=== PATIENT | female | born 1995 | race Caucasian/White ===

== ENCOUNTER → 2020-08-26 11:19 | Outpatient (BNVA) | payer OTHER, SELFPAY | PROVIDERS: Visit Provider Emergency Medicine | DX: Z20.822 Contact with and (suspected) exposure to COVID-19 (principal) | CPT/HCPCS: 87635 ==

== ENCOUNTER → 2023-07-17 12:00 | Outpatient (BNVA) | payer SELFPAY | PROVIDERS: PCP Nurse Practitioner Family; Visit Provider Nurse Practitioner Family | DX: E03.9 Hypothyroidism, unspecified (principal); Z83.79 Family history of other diseases of the digestive system; L20.9 Atopic dermatitis, unspecified; E66.9 Obesity, unspecified; Z68.32 Body mass index [BMI] 32.0-32.9, adult | CPT/HCPCS: 80053; 80061; 82784; 82785; 83516; 84443; 85025; 86001; 86003 ==

== ENCOUNTER 2025-01-27 09:16 | Emergency (ER) | payer OTHER, BC, MEDICAID, SELFPAY ==
[2025-01-27 09:22] VITALS: BP 128/78; PULSE 89; RESP 16; TEMP 36.6; O2SAT 99; BMI 24.9
--- NOTE | 2025-01-27 09:22 | ED_ITS ---
HPI - General Adult 2 General: Chief complaint: Animal Bite Stated complaint: cat bite right hand Time Seen by Provider: 01/27/25 09:17 Source: patient Mode of arrival: ambulatory Limitations: no limitations History of Present Illness: 29-year-old female states she was bit by a cat 2 days ago. Bit her on the right hand states cat is vaccinated states she has had some swelling and erythema to that hand. Mainly over the dorsum of the hand. Rates the pain a 6 out of 10 she denies any fevers denies any other injuries Related Data Home Medications ?Medication ?Instructions ?Recorded ?Confirmed levothyroxine 137 mcg tablet 137 mcg PO QAM 01/27/25 1 03/30/24 Previous Rx's ?Medication ?Instructions ?Recorded amoxicillin 500 mg-potassium 1 tab PO BID #14 tabs clavulanate 125 mg tablet (Augmentin) Allergies Allergy/AdvReac Type Severity Reaction Status Date / Time No Known Allergies Allergy Verified 08/26/20 11:02 [facility] ED 2 [facility]: Medical History (Updated 01/27/25 @ 10:10 by Pro Estrada MD) Hypothyroid Social History Smoking and tobacco/nicotine status: never used tobacco/nicotine Physical Exam 2 Const: COMMON NORMALS: no acute distress, patient oriented x3 and healthy appearing HENMT: COMMON NORMALS: normocephalic and atraumatic HEAD & SCALP: n ormocephalic and atraumatic Neck/C-Spine: COMMON NORMALS: full ROM and supple Chest: COMMONS NORMALS: normal inspection of the chest Resp: COMMON NORMALS: normal respiratory effort Cardio: COMMON NORMALS: regular rate, regular rhythm and No murmurs present (Cardio) RATE: regular rate RHYTHM: regular rhythm Extremity: COMMON NORMALS: full ROM NARRATIVE EXTREMITY EXAM: Erythema to the dorsum of right hand does not involve the fingers Neuro: COMMON NORMALS: patient oriented x3, moves all extremities and no focal motor deficits Psych: COMMON NORMALS: mental status grossly normal, Normal thought process present and cooperative THOUGHT PROCESS: Normal thought process present Skin: COMMON NORMALS: no rashes or lesions noted and no wounds GENERAL SKIN EXAM: no rashes or lesions noted Course 2 Vital Signs: Vital signs: Vital Signs Temperature 97.9 F 01/27/25 09:22 Pulse Rate 89 01/27/25 09:22 Respiratory Rate 16 01/27/25 09:22 Blood Pressure 128/78 01/27/25 09:22 Pulse Oximetry 99 01/27/25 09:22 Oxygen Delivery Me thod Room Air 01/27/25 09:22 MDM - General Adult Medical Decision Making 29-year-old female presents here after a cat bite to her right hand 2 days ago she does have a cellulitis that is mild in nature. She has no signs of necrotizing fasciitis her white count here was normal and she is afebrile did give her an IV dose of vancomycin here will prescribe her Augmentin for home I cat was vaccinated I did tell her if she has any worsening cellulitis she is to return she understands agrees to plan. Medical Records I reviewed the patient's medical records. Lab Data I reviewed the patient's lab results. 01/27/25 09:52 Laboratory Results WBC 6.12 10^3/uL (3.29-11.43) 01/27/25 09:52 RBC 4.45 10^6/uL (3.85-5.65) 01/27/25 09:52 Hgb 13.80 g/dL (11.27-16.99) 01/27/25 09:52 Hct 39.6 % (36-47) 01/27/25 09:52 MCV 89.0 fl (85-98) 01/27/25 09:52 MCH 31.0 pg (27-33) 01/27/25 09:52 MCHC 34.8 g/dL (30-55) 01/27/25 09:52 RDW 11.7 % (12.1-15.1) L 01/27/25 09:52 Plt Count 262 10^3/cmm (157-399) 01/27/25 09:52 MPV 9.4 fL (7.4-10.4) 01/27/25 09:52 Neut % (Auto) 65.2 % 01/27/25 09:52 Lymph % (Auto) 22.1 % 01/27/25 09:52 [place] % (Auto) 11.3 % 01/27/25 09:52 Eos % (Auto) 0.8 % 01/27/25 09:52 Baso % (Auto) 0.3 % 01/27/25 09:52 Neut # (Auto) 3.99 10^3/uL (1.8-7.7) 01/27/25 09:52 Lymph # (Auto) 1.4 10^3/uL (0.8-4.8) 01/27/25 09:52 [place] # (Auto) 0.7 10^3/uL (0.2-0.9) 01/27/25 09:52 Eos # (Auto) 0.1 10^3/uL (0.0-0.8) 01/27/25 09:52 Baso # (Auto) 0.0 10^3/uL (0.0-0.1) 01/27/25 09:52 Nucleated RBC % (auto) 0 % 01/27/25 09:52 Nucleated RBCs # 0.0 /100WBC 01/27/25 09:52 All radiology interpretation(s) finalized by discharge Discharge Plan Discharge Patient Disposition: Home Clinical Impression: Cat bite Qualifiers: Encounter type: initial encounter Qualified Code(s): W55.01XA - Bitten by cat, initial encounter Cellulitis Qualifiers: Site of cellulitis: extremity Site of cellulitis of extremity: upper extremity Laterality: right Qualified Code(s): L03.113 - Cellulitis of right upper limb Condition: Stable Prescriptions: New amoxicillin-pot clavulanate [Augmentin] 500-125 mg tablet 1 tab PO BID Qty: 14 0RF No Action levothyroxine 137 mcg tablet 137 mcg PO QAM Discharge Orders: Discharge ED (Routine); Ordered 01/27/25 Ordered By: Pro Estrada Referrals: Navya Aragon NP [Primary Care Provider, [facility]] - 4-7 days Discharge Diet: Advance as tolerated Discharge Activity: Resume usual activity Patient Instructions: Animal Bite (ED), Cellulitis (ED) Print Language: Greenlandic Coding Level of Care Code ED Gift Packer for Lowell Lockett
[2025-01-27 09:58] LABS: Hematocrit 39.6 % (36-47); Hemoglobin 13.80 g/dL (11.27-16.99); Mean Corpuscular HGB Conc 34.8 g/dL (30-55); Mean Corpuscular Hemoglobin 31.0 pg (27-33); Mean Corpuscular Volume 89.0 fl (85-98); Nucleated Red Blood Cells % 0 %; Platelet Count 262 10^3/cmm (157-399); Red Blood Count 4.45 10^6/uL (3.85-5.65); White Blood Count 6.12 10^3/uL (3.29-11.43)
[2025-01-27 10:54] VITALS: RESP 16
[2025-01-27] MEDS: morphine 4 mg/mL SDV 1 mL IVP (10:54)
[2025-01-27] MEDS: ondansetron 2 mg/ML SDV 2 mL 4 MG IVP (10:55)
== END 2025-01-27 12:09 | disposition home or self-care (01) ==
PROVIDERS: Emergency Provider Emergency Medicine; PCP Nurse Practitioner Family
DX: S61.451A Open bite of right hand, initial encounter (principal); W55.01XA Bitten by cat, initial encounter; L03.113 Cellulitis of right upper limb
CPT/HCPCS: 36415; 85025; 96374; 96375; 99284; J2270; J2405; J3373; J7050